=== PATIENT | male | born 1995 | race Caucasian/White ===

== ENCOUNTER 2020-07-06 13:58 | Emergency (ER) | payer OTHER ==
[~2020-07-06 13:58] MED LIST: NORCO 10/325 TA1 TA1 PO
[2020-07-06 14:03] VITALS: Ht 190.5 cm
[2020-07-06] MEDS ORDERED: AUGMENTIN 875-11 TAB PO (16:27)
[2020-07-06 17:04] VITALS: BP 128/72
== END 2020-07-06 17:05 | disposition home or self-care (01) ==
LOC: D.ER 13:58
DX: S01.511A Laceration without foreign body of lip, initial encounter (principal); V89.2XXA Person injured in unspecified motor-vehicle accident, traffic, initial encounter; Y93.9 Activity, unspecified; Y92.9 Unspecified place or not applicable

== ENCOUNTER → 2020-07-07 18:42 | Outpatient (CLI) | payer BC ==
[~2020-07-07 18:42] MED LIST changes: +AUGMENTIN 875-11 TAB PO
== END | disposition home or self-care (01) ==
LOC: D.LABREF 18:42
PROVIDERS: ATTEND Orthopaedic Surgery
DX: S01.551A Open bite of lip, initial encounter (principal)